=== PATIENT | male | born 1980 | race Caucasian/White ===

== ENCOUNTER 2020-05-13 15:44 | Emergency (ER) | payer SELFPAY ==
[~2020-05-13] VITALS: Ht 175.2 cm; Wt 88.5 kg
[2020-05-13] MEDS ORDERED: ZITHROMAX250 MG PO (17:52)
[2020-05-13] MEDS ORDERED: CLARITIN-D 121 EACH PO (17:52)
== END 2020-05-13 18:00 | disposition home or self-care (01) ==
LOC: ED 15:44
DX: J40 Bronchitis, not specified as acute or chronic (principal); H66.90 Otitis media, unspecified, unspecified ear

== ENCOUNTER → 2020-09-18 | Outpatient (CLI) | payer SELFPAY ==
[~2020-09-18] MED LIST: CLARITIN-D 121 EACH PO; ZITHROMAX250 MG PO
== END | disposition home or self-care (01) ==
LOC: COVID19 10:29
PROVIDERS: ATTEND Internal Medicine
DX: Z20.828 Contact with and (suspected) exposure to other viral communicable diseases (principal)

== ENCOUNTER → 2021-04-23 | Outpatient (CLI) | payer SELFPAY | END | disposition home or self-care (01) | LOC: US 10:00 | PROVIDERS: ATTEND Internal Medicine | DX: E04.1 Nontoxic single thyroid nodule (principal); E04.9 Nontoxic goiter, unspecified; E05.90 Thyrotoxicosis, unspecified without thyrotoxic crisis or storm ==

== ENCOUNTER 2024-07-29 22:08 | Emergency (ER) | payer SELFPAY ==
[~2024-07-29] VITALS: Ht 175.2 cm; Wt 88.5 kg
== END 2024-07-29 23:01 | disposition home or self-care (01) ==
LOC: ED 22:08
DX: S93.401A Sprain of unspecified ligament of right ankle, initial encounter (principal); Z88.0 Allergy status to penicillin; X50.1XXA Overexertion from prolonged static or awkward postures, initial encounter; Y93.64 Activity, baseball; Y92.39 Other specified sports and athletic area as the place of occurrence of the external cause; Y99.8 Other external cause status

== ENCOUNTER 2024-12-22 19:03 | Emergency (ER) | payer SELFPAY ==
[~2024-12-22] VITALS: Ht 172.7 cm; Wt 93.0 kg
[2024-12-22] MEDS ORDERED: Ketorolac Tromethamine 30 MG/ML VIAL IV ONE (19:45)
[2024-12-22] MEDS ORDERED: Metoclopramide Hydrochloride 10 MG/2 ML VIAL IV ONE (19:45)
[2024-12-22] MEDS ORDERED: diphenhydrAMINE hydrochloride 50 MG/ML VIAL IV ONE (19:45)
[2024-12-22] MEDS ORDERED: SODIUM CHLORIDE 0.9% 1,000 ML IV ONE (19:45)
[2024-12-22] MEDS ORDERED: Dexamethasone Sodium Phospha 20 MG/5 ML VIAL IV ONE (19:45)
== END 2024-12-22 21:29 | disposition home or self-care (01) ==
LOC: ED 19:03
DX: G43.909 Migraine, unspecified, not intractable, without status migrainosus (principal); Z88.0 Allergy status to penicillin

== ENCOUNTER 2024-12-24 12:44 | Emergency (ER) | payer SELFPAY ==
[~2024-12-24] VITALS: Ht 175.2 cm; Wt 93.0 kg
[2024-12-24] MEDS ORDERED: METFORMIN XR500 MG PO (13:15)
[2024-12-24] MEDS ORDERED: FISH OIL 1,0001 EAC9 PO (13:15)
[2024-12-24 13:57] LABS: BASO # 0.1 10*3/uL (0.0-0.1); BASO % 0.5 % (0.0-1.0); EOS # 0.2 10*3/uL (0.0-0.4); EOS % 2.1 % (1.0-4.0); HEMATOCRIT 44.2 % (42.0-52.0); MEAN CELL VOLUME 86.2 fl (80.0-94.0); MEAN CORPUSCULAR HGB CONC 33.7 g/dl (33.0-37.0); MONO # 0.6 10*3/uL (0.1-1.0); MONO % 5.6 % (3.0-9.0); NEUT # 5.4 10*3/uL (2.3-7.9); NEUT % 53.7 % (47.0-73.0); PLATELET COUNT AUTOMATED 251 10*3/uL (130-400); RED BLOOD COUNT 5.13 10*6/uL (4.50-5.90); RED CELL DISTRI WIDTH 12.2 % (0-14.5); WHITE BLOOD COUNT 10.1 10*3/uL (4.8-10.8)
[2024-12-24 14:14] LABS: BUN 14 mg/dl (9-23); CHLORIDE 102 mmol/L (98-107); POTASSIUM 3.7 mmol/L (3.4-5.1)
[2024-12-24] MEDS ORDERED: PREDNISONE50 MG PO (14:27)
[2024-12-24] MEDS ORDERED: methylPREDNISolone sod succ 125 MG VIAL IM ONE (14:30)
== END 2024-12-24 14:40 | disposition home or self-care (01) ==
LOC: ED 12:44
PROVIDERS: Nurse Practitioner Family
DX: G43.909 Migraine, unspecified, not intractable, without status migrainosus (principal); Z88.0 Allergy status to penicillin; Z79.84 Long term (current) use of oral hypoglycemic drugs; Z79.899 Other long term (current) drug therapy; Z98.890 Other specified postprocedural states

== ENCOUNTER 2025-02-08 10:42 | Emergency (ER) | payer SELFPAY ==
[~2025-02-08] VITALS: Wt 88.5 kg
[~2025-02-08 10:42] MED LIST changes: +FISH OIL 1,0001 EAC9 PO; +METFORMIN XR500 MG PO; +PREDNISONE50 MG PO
[2025-02-08] MEDS ORDERED: ATORVASTATIN CA80 M1 PO (11:00)
[2025-02-08] MEDS ORDERED: VIBRAMYCIN100 MG PO (12:00)
[2025-02-08] MEDS ORDERED: Doxycycline Hyclate 100 MG CAPSULE PO ONE (12:00)
== END 2025-02-08 12:15 | disposition home or self-care (01) ==
LOC: ED 10:42
DX: S30.861A Insect bite (nonvenomous) of abdominal wall, initial encounter (principal); E78.00 Pure hypercholesterolemia, unspecified; Z79.899 Other long term (current) drug therapy; Z88.0 Allergy status to penicillin; W57.XXXA Bitten or stung by nonvenomous insect and other nonvenomous arthropods, initial encounter; Y93.89 Activity, other specified; Y92.89 Other specified places as the place of occurrence of the external cause; Y99.8 Other external cause status

== ENCOUNTER → 2025-03-22 | Outpatient (CLI) | payer OTHER ==
[~2025-03-22] MED LIST changes: +ATORVASTATIN CA80 M1 PO; +VIBRAMYCIN100 MG PO
[2025-03-22 11:33] LABS: HEMATOCRIT 49.6 % (42.0-52.0); MEAN CELL VOLUME 85.7 fl (80.0-94.0); MEAN CORPUSCULAR HGB CONC 32.7 g/dl (33.0-37.0); MEAN PLATELET VOLUME 10.1 fl (9.6-12.3); RED BLOOD COUNT 5.79 10*6/uL (4.50-5.90); RED CELL DISTRI WIDTH 12.9 % (0-14.5); WHITE BLOOD COUNT 6.8 10*3/uL (4.8-10.8)
[2025-03-22 11:59] LABS: ALKALINE PHOSPHATASE 70 U/L (46-116); BUN 10 mg/dl (9-23); CHLORIDE 103 mmol/L (98-107); CHOLESTEROL 145 mg/dL (<200); CPK 455 U/L (34-171); LDL CHOLESTEROL 79 mg/dL (9-159); POTASSIUM 3.8 mmol/L (3.4-5.1); SGPT/ALT 59 U/L (5-49); TRIGLYCERIDES 113 mg/dl (<150)
[2025-03-22 12:28] LABS: VITAMIN D, 25-HYDROXY 38.4 ng/mL (30-100)
[2025-03-23 05:06] LABS: HBsAG SCREEN Negative (Negative); HEP B CORE Ab, IgM Negative (Negative)
[2025-03-24 21:07] LABS: HCV Ab Reactive (Non Reactive)
== END | disposition home or self-care (01) ==
LOC: LAB 10:24
PROVIDERS: ATTEND Family Medicine
DX: E78.00 Pure hypercholesterolemia, unspecified (principal); E11.9 Type 2 diabetes mellitus without complications; I63.9 Cerebral infarction, unspecified

== ENCOUNTER 2025-07-04 15:54 | Emergency (ER) | payer OTHER ==
[~2025-07-04] VITALS: Ht 175.2 cm; Wt 83.0 kg
[2025-07-04] MEDS ORDERED: SEPTDS PO (18:21)
[2025-07-04] MEDS ORDERED: Bacitracin Zinc 14 GM TUBE T ONE (18:25)
[2025-07-04] MEDS ORDERED: Sulfamethoxazole/Trimethopri 1 TAB TAB PO ONE (18:25)
== END 2025-07-04 18:37 | disposition home or self-care (01) ==
LOC: ED 15:54
DX: S91.331A Puncture wound without foreign body, right foot, initial encounter (principal); G43.909 Migraine, unspecified, not intractable, without status migrainosus; E78.00 Pure hypercholesterolemia, unspecified; Z88.0 Allergy status to penicillin; Z86.73 Personal history of transient ischemic attack (TIA), and cerebral infarction without residual deficits; Z98.890 Other specified postprocedural states; W22.8XXA Striking against or struck by other objects, initial encounter; Y93.89 Activity, other specified; Y92.89 Other specified places as the place of occurrence of the external cause; Y99.8 Other external cause status